=== PATIENT | male | born 1960 | race Caucasian/White ===

== ENCOUNTER 2018-07-23 06:02 | Inpatient (IN) | payer OTHER ==
[2018-07-23] MEDS ORDERED: PAPAVERINE 60 MG INJ (06:47)
[2018-07-23] MEDS ORDERED: GELATIN SIZE 100 SPONGE ×3 (06:47→11:30)
[2018-07-23] MEDS ORDERED: MIDAZOLAM 1 MG/ML 2 ML INJ (07:40)
[2018-07-23] MEDS ORDERED: PHENYLephrine (100 MCG/ML) 5ML SYG (07:50)
[2018-07-23] MEDS: DEXTRAN-40 10%/D5W 500 ML, HEPARIN 1,000 UNIT, PAPAVERINE 120 MG IV (08:48)
[2018-07-23] MEDS: HEPARIN 1000 UNITS/ML 10 ML INJ (08:49)
[2018-07-23] MEDS: THROMBIN 20,000 UNIT VIAL ZFS (08:50)
[2018-07-23] MEDS: GELATIN SIZE 100 SPONGE TOP (08:50)
[2018-07-23] MEDS ORDERED: HEPARIN 1000 UNITS/ML 10 ML INJ (09:39)
[2018-07-23] MEDS ORDERED: ETOMIDATE 20 MG INJ (11:44)
[2018-07-23] MEDS ORDERED: LIDOCAINE 2% (SDV) 5 ML INJ (11:44)
[2018-07-23] MEDS ORDERED: ROCURONIUM 50 MG INJ (11:44)
[2018-07-23] MEDS ORDERED: CEFAZOLIN 1 GM INJ (11:49)
[2018-07-23] MEDS ORDERED: ONDANSETRON 4 MG INJ (11:49)
[2018-07-23] MEDS ORDERED: hydrALAzine 20 MG INJ IV (12:30)
[2018-07-23] MEDS ORDERED: DIPHENHYDRAMINE 50 MG INJ IV ×2 (12:30)
[2018-07-23] MEDS ORDERED: ONDANSETRON 4 MG INJ IV (12:30)
[2018-07-23] MEDS ORDERED: morphine 2 MG INJ IV (12:30)
[2018-07-23] MEDS ORDERED: LABETALOL HCL 20MG INJ IV (12:30)
[2018-07-23] MEDS ORDERED: morphine (1 MG/ML) 10ML SYRINGE IV ×2 (12:30)
[2018-07-23] MEDS: morphine 2 MG INJ IV (13:35)
[2018-07-23] MEDS: SOD CHLORIDE 0.9% 1,000 ML IV ×2 (13:41→23:05)
[2018-07-23 15:10] LABS: ADD MAN DIFF? NO
[2018-07-23 15:11] LABS: BASOPHILS % 0.3 % (0.0-2.0); EOSINOPHILS % 0.3 % (0.0-7.0); HEMATOCRIT 29.9 % (42.0-52.0); HEMOGLOBIN 10.3 g/dl (14.0-18.0); LYMPHOCYTES # 1.7 10^3/ul (0.8-2.9); LYMPHOCYTES % 14.3 % (15.0-51.0); MEAN CORPUSCULAR HEMOGLOBIN 34.3 pg (29.0-33.0); MEAN CORPUSCULAR HGB CONC 34.4 g/dl (32.0-37.0); MEAN CORPUSCULAR VOLUME 99.7 fl (82.0-101.0); MEAN PLATELET VOLUME 9.6 fl (7.4-10.4); MONOCYTE # 0.8 10^3/ul (0.3-0.9); MONOCYTES % 6.4 % (0.0-11.0); NEUTROPHIL # 9.4 10^3/ul (1.6-7.5); NEUTROPHILS % 78.4 % (39.0-77.0); PLATELET COUNT 195 10^3/UL (140-415); RED CELL DISTRIBUTION WIDTH 12.2 % (11.5-14.5)
[2018-07-23 15:28] LABS: ANION GAP 8 (5-13); BLOOD UREA NITROGEN 16 mg/dl (7-20); CALCIUM 8.2 mg/dl (8.4-10.2); CARBON DIOXIDE 24 mmol/L (21-31); CHLORIDE 105 mmol/L (97-110); CREATININE 0.84 mg/dl (0.61-1.24); Estimated GFR > 60 mL/min (>60); GLUCOSE 124 mg/dl (70-220); POTASSIUM 3.7 mmol/L (3.5-5.1); SODIUM 137 mmol/L (135-144)
[2018-07-23] MEDS ORDERED: HEPARIN 5,000 UNIT/0.5 ML VIAL ×2 (15:39→21:04)
[2018-07-23] MEDS: CEFAZOLIN 2 GM/50 ML (PMX) 50 ML IVPB ×2 (15:43→21:14)
[2018-07-23] MEDS: HEPARIN 5,000 UNIT/1 ML VIAL SC ×2 (15:44→21:15)
[2018-07-23] MEDS: OXYCODONE/ACETAMINOPHEN (5/325) TAB PO (18:24)
[2018-07-23] MEDS: ATORVASTATIN 80 MG TAB PO (21:14)
[2018-07-24] MEDS: OXYCODONE/ACETAMINOPHEN (5/325) TAB PO ×2 (01:03→17:25)
[2018-07-24 05:22] LABS: ADD MAN DIFF? NO
[2018-07-24 05:25] LABS: BASOPHILS % 0.1 % (0.0-2.0); EOSINOPHILS % 0.5 % (0.0-7.0); HEMOGLOBIN 9.7 g/dl (14.0-18.0); LYMPHOCYTES # 1.3 10^3/ul (0.8-2.9); LYMPHOCYTES % 16.8 % (15.0-51.0); MEAN CORPUSCULAR HEMOGLOBIN 33.9 pg (29.0-33.0); MEAN CORPUSCULAR HGB CONC 33.4 g/dl (32.0-37.0); MEAN CORPUSCULAR VOLUME 101.4 fl (82.0-101.0); MEAN PLATELET VOLUME 10.6 fl (7.4-10.4); MONOCYTE # 0.6 10^3/ul (0.3-0.9); MONOCYTES % 7.9 % (0.0-11.0); NEUTROPHIL # 5.9 10^3/ul (1.6-7.5); NEUTROPHILS % 74.4 % (39.0-77.0); PLATELET COUNT 188 10^3/UL (140-415); RED BLOOD COUNT 2.86 10^6/ul (4.70-6.10); RED CELL DISTRIBUTION WIDTH 12.3 % (11.5-14.5)
[2018-07-24 05:41] LABS: INR 1.05; PROTIME 13.8 Sec (11.9-14.9); PT RATIO 1.1
[2018-07-24 05:42] LABS: PARTIAL THROMBOPLASTIN TIME 26.9 Sec (23.0-35.0)
[2018-07-24 05:54] LABS: ANION GAP 7 (5-13); BLOOD UREA NITROGEN 13 mg/dl (7-20); CALCIUM 7.6 mg/dl (8.4-10.2); CARBON DIOXIDE 27 mmol/L (21-31); CHLORIDE 101 mmol/L (97-110); CREATININE 0.87 mg/dl (0.61-1.24); Estimated GFR > 60 mL/min (>60); GLUCOSE 131 mg/dl (70-220); POTASSIUM 3.9 mmol/L (3.5-5.1); SODIUM 135 mmol/L (135-144)
[2018-07-24 05:59] LABS: MAGNESIUM 1.8 mg/dl (1.7-2.5)
[2018-07-24 05:59] LABS: PHOSPHORUS 3.7 mg/dl (2.5-4.9)
[2018-07-24] MEDS ORDERED: HEPARIN 5,000 UNIT/0.5 ML VIAL ×4 (06:16→21:17)
[2018-07-24] MEDS: PANTOPRAZOLE 40 MG INJ IV (06:20)
[2018-07-24] MEDS: SOD CHLORIDE 0.9% 1,000 ML IV (06:20)
[2018-07-24] MEDS: HEPARIN 5,000 UNIT/1 ML VIAL SC ×3 (06:28→21:25)
[2018-07-24] MEDS: CEFAZOLIN 2 GM/50 ML (PMX) 50 ML IVPB ×4 (06:29→23:00)
[2018-07-24] MEDS: BENAZEPRIL 20 MG TAB PO (08:38)
[2018-07-24] MEDS: HYDROCHLOROTHIAZIDE 25 MG TAB PO (08:38)
[2018-07-24] MEDS: ASPIRIN (EC) 81 MG TAB PO (08:39)
[2018-07-24] MEDS: CLOPIDOGREL 75 MG TAB PO (09:44)
[2018-07-24] MEDS: AMLODIPINE 5 MG TAB PO (09:45)
[2018-07-24] MEDS: ATORVASTATIN 80 MG TAB PO (21:20)
[2018-07-25] MEDS: OXYCODONE/ACETAMINOPHEN (5/325) TAB PO (00:53)
[2018-07-25] MEDS: INFLUENZA VIRUS VACCINE 0.5 ML (DISPENSING) IM* (00:55)
[2018-07-25] MEDS ORDERED: HEPARIN 5,000 UNIT/0.5 ML VIAL (05:25)
[2018-07-25] MEDS: PANTOPRAZOLE (EC) 40 MG TAB PO (05:31)
[2018-07-25] MEDS: HEPARIN 5,000 UNIT/1 ML VIAL SC (05:41)
[2018-07-25] MEDS: CEFAZOLIN 2 GM/50 ML (PMX) 50 ML IVPB (06:34)
[2018-07-25 07:50] LABS: ADD MAN DIFF? NO
[2018-07-25 07:54] LABS: BASOPHILS % 0.2 % (0.0-2.0); EOSINOPHILS # 0.1 10^3/ul (0.0-0.5); EOSINOPHILS % 0.7 % (0.0-7.0); HEMATOCRIT 27.6 % (42.0-52.0); HEMOGLOBIN 9.1 g/dl (14.0-18.0); LYMPHOCYTES # 1.5 10^3/ul (0.8-2.9); LYMPHOCYTES % 18.6 % (15.0-51.0); MEAN CORPUSCULAR HEMOGLOBIN 33.6 pg (29.0-33.0); MEAN CORPUSCULAR VOLUME 101.8 fl (82.0-101.0); MEAN PLATELET VOLUME 9.6 fl (7.4-10.4); MONOCYTE # 0.8 10^3/ul (0.3-0.9); MONOCYTES % 10.1 % (0.0-11.0); NEUTROPHIL # 5.6 10^3/ul (1.6-7.5); NEUTROPHILS % 69.9 % (39.0-77.0); PLATELET COUNT 160 10^3/UL (140-415); RED BLOOD COUNT 2.71 10^6/ul (4.70-6.10); RED CELL DISTRIBUTION WIDTH 12.3 % (11.5-14.5)
[2018-07-25 07:54] LABS: WHITE BLOOD COUNT 8.1 10^3/ul (4.8-10.8)
[2018-07-25 08:18] LABS: ANION GAP 7 (5-13); BLOOD UREA NITROGEN 11 mg/dl (7-20); CALCIUM 8.8 mg/dl (8.4-10.2); CARBON DIOXIDE 31 mmol/L (21-31); CHLORIDE 100 mmol/L (97-110); CREATININE 0.89 mg/dl (0.61-1.24); Estimated GFR > 60 mL/min (>60); GLUCOSE 133 mg/dl (70-220); MAGNESIUM 2.2 mg/dl (1.7-2.5); POTASSIUM 3.8 mmol/L (3.5-5.1); SODIUM 138 mmol/L (135-144)
[2018-07-25] MEDS: HYDROCHLOROTHIAZIDE 25 MG TAB PO (08:56)
[2018-07-25] MEDS: CLOPIDOGREL 75 MG TAB PO (08:56)
[2018-07-25] MEDS: BENAZEPRIL 20 MG TAB PO (08:56)
[2018-07-25] MEDS: ASPIRIN (EC) 81 MG TAB PO (08:56)
[2018-07-25] MEDS ORDERED: OXYCODONE/ACETAMINOPHEN (5/325) TAB PO (09:00)
[2018-07-25] MEDS ORDERED: ACETAMINOPHEN 325 MG TAB PO (09:00)
[2018-07-25] MEDS: AMLODIPINE 5 MG TAB PO (11:25)
[2018-07-25] MEDS ORDERED: APIXABAN 5 MG TABLET PO (21:00)
== END 2018-07-25 13:06 | disposition home or self-care (01) | DRG 269 ==
LOC: REC 06:02 → ICU 13:26 → TEL 07-24 22:41
PROC: 041 Lower Arteries, Bypass (ICD-10-PCS; principal; 2018-07-23 07:40)
PROC: 04R00JZ Replacement of Abdominal Aorta with Synthetic Substitute, Open Approach (ICD-10-PCS; 2018-07-23 07:40)
PROC: 04CL0ZZ Extirpation of Matter from Left Femoral Artery, Open Approach (ICD-10-PCS; 2018-07-23 07:40)
DX: I70.223 Atherosclerosis of native arteries of extremities with rest pain, bilateral legs (principal); I10 Essential (primary) hypertension; E78.5 Hyperlipidemia, unspecified; I71.4 Abdominal aortic aneurysm, without rupture
CPT/HCPCS: 72170; 80048; 83735; 84100; 85025; 85610; 85730; 86850; 86900; 86901; 86920; 87081; 90686; 97116; 97161